=== PATIENT | female | born 1995 | race Two or more races ===

== ENCOUNTER 2021-04-18 09:48 | Emergency (ER) | payer MEDICAID, OTHER ==
[~2021-04-18] VITALS: Ht 162.6 cm; Wt 87.5 kg
[2021-04-18] MEDS ORDERED: IBUPROFEN 800 MG TAB PO ONE (11:15)
[2021-04-18 11:26] VITALS: BP 146/64
[2021-04-18] MEDS ORDERED: IBUP800T27 PO (11:50)
== END 2021-04-18 12:19 | disposition home or self-care (01) ==
LOC: ER 09:48
DX: S93.402A Sprain of unspecified ligament of left ankle, initial encounter (principal); S83.92XA Sprain of unspecified site of left knee, initial encounter; X50.1XXA Overexertion from prolonged static or awkward postures, initial encounter; Y93.89 Activity, other specified; Y92.89 Other specified places as the place of occurrence of the external cause; Y99.8 Other external cause status
CPT/HCPCS: 73562; 73610

== ENCOUNTER → 2023-03-31 | Outpatient (CLI) | payer BC ==
[~2023-03-31] MED LIST: IBUP-1456 PO
[2023-03-31 12:27] LABS: Basophils # (auto) 0 10 ^3/uL (0-0.2); Basophils % (auto) 0.5 % (0.0-2.0); Eosinophils # (auto) 0.1 10 ^3/uL (0-0.8); Eosinophils % (auto) 0.9 % (0.0-7.0); Hematocrit 45.3 % (36.0-46.0); Hemoglobin 15.4 g/dL (12.2-16.2); Lymphocytes # (auto) 1.8 10 ^3/uL (0.4-5.4); Lymphocytes % (auto) 23.3 % (10.0-50.0); Mean Corpuscular Hemoglobin 30.5 pg (28.0-32.0); Mean Corpuscular Volume 89.9 fL (80.0-100.0); Monocytes # (auto) 0.4 10 ^3/uL (0-1.3); Monocytes % (auto) 5.1 % (0.0-12.0); Neutrophils # (auto) 5.5 10 ^3/uL (1.6-8.6); Neutrophils % (auto) 70.2 % (37.0-80.0); Red Blood Cells 5.04 10^6/uL (4.0-5.20); Red Cell Distribution Width 12.6 % (11.8-14.3); White Blood Cell 7.8 10^3/uL (4.4-10.8)
[2023-03-31 12:54] LABS: Alanine Aminotransferase 90 U/L (7-40); Albumin 4.7 g/dL (3.2-4.8); Alkaline Phosphatase 85 U/L (46-116); Calcium 9.7 mg/dL (8.5-10.1); Chloride 104 mmol/L (98-107); Triglycerides 112 mg/dL (< 150)
[2023-03-31 12:55] LABS: Anion Gap 8 (5-15); Aspartate Aminotransferase 55 U/L (13-40); BUN/Creatinine Ratio 7.7 (10.0-20.0); Bilirubin, Total 0.9 mg/dL (0.2-1.0); Blood Urea Nitrogen 6 mg/dL (9-23); Carbon Dioxide 25 mmol/L (20-30); Cholesterol 174 mg/dL (< 200); Glucose 94 mg/dL (74-106); HDL Cholesterol 69 mg/dL (40-59); LDL Cholesterol 94 mg/dL (< 100); Sodium 137 mmol/L (136-145); Total Protein 7.5 g/dL (5.7-8.2)
[2023-03-31 13:01] LABS: Urine Bacteria NONE SEEN /hpf (None Seen); Urine Blood 3+ /uL (Negative); Urine Clarity Clear (Clear); Urine Color Yellow (Yellow); Urine Mucus FEW (None Seen); Urine Protein, UAD TRACE (Negative); Urine Specific Gravity 1.021 (1.001-1.035); Urine Urobilinogen Normal (Negative); Urine WBC 19 /hpf (0 - 5); Urine pH 5.5 (5.0-8.0)
[2023-03-31 13:50] LABS: Hepatitis B Core Total AB Negative (Negative)
[2023-03-31 14:09] LABS: Hepatitis A Total Antibody Positive (Negative)
[2023-03-31 14:10] LABS: Hepatitis B Surface Antibody Positive (Negative); Hepatitis B Surface Antigen Negative (Negative); Hepatitis C Antibody Negative (Negative)
[2023-04-01 08:06] LABS: RPR Non Reactive (Non Reactive)
[2023-04-02 03:07] LABS: Chlamydia Trachomatis, NAA Negative (Negative); Neisseria gonorrhoeae, NAA Negative (Negative)
== END | disposition home or self-care (01) ==
LOC: LAB 12:05
DX: Z00.01 Encounter for general adult medical examination with abnormal findings (principal); Z80.0 Family history of malignant neoplasm of digestive organs; E66.9 Obesity, unspecified
CPT/HCPCS: 36415; 80053; 80061; 81001; 82306; 83036; 84443; 85025; 86592; 86703; 86704; 86706; 86708; 86803; 87340

== ENCOUNTER → 2023-04-07 | Outpatient (CLI) | payer BC | END | disposition home or self-care (01) | LOC: LAB 13:14 | DX: Z00.01 Encounter for general adult medical examination with abnormal findings (principal); E66.9 Obesity, unspecified; Z80.0 Family history of malignant neoplasm of digestive organs | CPT/HCPCS: 82274 ==